=== PATIENT | female | born 2000 | race Caucasian/White ===

== ENCOUNTER 2020-04-19 19:46 | Emergency (ER) | payer OTHER ==
[~2020-04-19] VITALS: Ht 149.9 cm; Wt 68.0 kg
[2020-04-19] MEDS ORDERED: ACID CONTROLLER20 MG PO (20:24)
[2020-04-19] MEDS ORDERED: NEXPLANON68 MG SUBQ (20:24)
[2020-04-19] MEDS ORDERED: SERTRALINE HCL100 MG PO (20:24)
[2020-04-19 22:21] LABS: ABSOLUTE NEUTROPHILS 4.6 thou/uL (1.4-8.2); BASOPHILS 0.8 % (0.0-2.0); EOSINOPHILS 1.4 % (0.0-3.0); HEMATOCRIT 40.5 % (37.0-47.0); HEMOGLOBIN 13.8 gm/dL (12.0-15.0); LYMPHOCYTES 28.2 % (24.0-44.0); MCH 30.3 pg (26.0-34.0); MCHC 34.1 g/dL (28.0-37.0); MCV 88.8 fL (80.0-100.0); MONOCYTES 6.8 % (1.0-8.0); PLATELET COUNT 396 thou/uL (150-400); POLYS 62.8 % (36.0-66.0); RBC 4.56 mil/uL (4.20-5.00); RDW 13.2 % (10.5-14.5); WBC 7.3 thou/uL (4.0-11.0)
[2020-04-19 22:38] LABS: ANION GAP 9 mmol/L (7-16); BUN 10 mg/dL (7-18); CALCIUM 9.2 mg/dL (8.5-10.1); CHLORIDE 105 mmol/L (98-107); CO2 26 mmol/L (21-32); CREATININE 0.9 mg/dL (0.6-1.0); GLUCOSE 84 mg/dL (74-106); POTASSIUM 3.5 mmol/L (3.5-5.1); SODIUM 140 mmol/L (136-145)
[2020-04-19 22:42] LABS: ALBUMIN 3.9 g/dL (3.4-5.0); DIRECT BILIRUBIN < 0.1 mg/dL (<0.1-0.2); SGOT 20 U/L (15-37); SGPT 42 U/L (30-65); TOTAL BILIRUBIN 0.4 mg/dL (0.2-1.0); TOTAL PROTEIN 7.8 g/dL (6.4-8.2)
[2020-04-19 23:53] LABS: URINE BILIRUBIN NEGATIVE (Negative); URINE BLOOD NEGATIVE (Negative); URINE CLARITY SL CLOUDY; URINE COLOR YELLOW; URINE GLUCOSE-RANDOM* NEGATIVE (Negative); URINE KETONES NEGATIVE (Negative); URINE NITRITE-REFLEX NEGATIVE (Negative); URINE PROTEIN (DIPSTICK) NEGATIVE (Negative); URINE SPECIFIC GRAVITY 1.025 (1.005-1.035)
[2020-04-20 00:10] LABS: URINE LEUKOCYTES-REFLEX 1+ (Negative)
[2020-04-20 01:05] LABS: CRYSTALS None Seen /LPF (None Seen); HYALINE CASTS 0-3 Few /LPF (None Seen); MUCUS 4-6 Moderate strn/LPF (None Seen); SQUAMOUS 0-3 Few /LPF (0-3); URINE RBC 3-10 Few /HPF (0-2); URINE WBC-REFLEX 6-15 Few /HPF (0-5)
[2020-04-20] MEDS ORDERED: ZOFRAN ODT4 MG PO (01:11)
[2020-04-20] MEDS ORDERED: KEFLEX500 M1 PO (01:11)
[2020-04-20] MEDS ORDERED: MOBIC15 MG PO (01:11)
[2020-04-20 01:34] VITALS: BP 118/76
== END 2020-04-20 01:35 | disposition home or self-care (01) ==
LOC: ER 19:46
PROVIDERS: Emergency Medicine
DX: N39.0 Urinary tract infection, site not specified (principal); K21.9 Gastro-esophageal reflux disease without esophagitis; Z88.6 Allergy status to analgesic agent; Z88.8 Allergy status to other drugs, medicaments and biological substances